=== PATIENT | female | born 1940 | race Two or more races ===

== ENCOUNTER 2025-08-25 19:55 | Emergency (ER) | payer OTHER ==
[~2025-08-25] VITALS: Ht 139.7 cm; Wt 50.3 kg
[2025-08-25] MEDS ORDERED: PREDNISOLO15 MG/5 ML PO (20:19)
[2025-08-25 20:20] VITALS: BP 101/97; O2SAT 95
[2025-08-25] MEDS ORDERED: BREZTRI AEROS10.7 GM IH (20:20)
[2025-08-25] MEDS ORDERED: PROAIR RESPICL90 MCG IH (20:20)
== END 2025-08-25 23:15 | disposition home or self-care (01) ==
LOC: ER 19:55
DX: S00.12XA Contusion of left eyelid and periocular area, initial encounter (principal); W18.39XA Other fall on same level, initial encounter; Y93.89 Activity, other specified; Y92.520 Airport as the place of occurrence of the external cause; M19.90 Unspecified osteoarthritis, unspecified site; J45.909 Unspecified asthma, uncomplicated; R51.9 Headache, unspecified